=== PATIENT | female | born 1990 | race African-American/Black ===

== ENCOUNTER 2017-12-07 14:22 | Emergency (ER) | payer MEDICAID ==
[~2017-12-07] VITALS: Ht 167.6 cm; Wt 108.9 kg
[~2017-12-07 14:22] MED LIST: AUGMENTIN 875-1 EAC1 ORAL; HYDROCODON-ACE1 EA15 ORAL
[2017-12-07 15:34] LABS: APPEARANCE,URINE CLEAR; BILIRUBIN, URINE NEGATIVE (NEGATIVE); COLOR,URINE PALE YELLOW; GLUCOSE, URINE (UA) NEGATIVE (NEGATIVE); KETONES,URINE NEGATIVE (NEGATIVE); LEUKOCYTE ESTERASE ,URINE 2+ (NEGATIVE); NITRITE,URINE NEGATIVE (NEGATIVE); PH,URINE 6 (4.5-8.0); PROTEIN,URINE NEGATIVE (NEGATIVE); UROBILINOGEN,URINE NORMAL MG/DL (0.0-1.0)
[2017-12-07 15:37] LABS: INR 0.9 (0.9-1.1)
[2017-12-07 15:43] LABS: BASOPHILS % (AUTO) 0.4 % (0.0-2.0); EOSINOPHILS % (AUTO) 1.1 % (0.0-3.0); HEMATOCRIT 33.8 % (37.0-47.0); HEMOGLOBIN 11.5 G/DL (12.0-16.0); LYMPHOCYTES % (AUTO) 15.4 % (20.0-45.0); MEAN CORPUSCULAR VOLUME 81 FL (80-99); MONOCYTES % (AUTO) 4.6 % (1.0-10.0); NEUTROPHILS % (AUTO) 78.4 % (45.0-75.0); PLATELET COUNT 272 K/UL (150-450); RED BLOOD COUNT 4.17 M/UL (4.20-5.40); RED CELL DISTRIBUTION WIDTH 11.6 % (11.6-14.8); WHITE BLOOD COUNT 14.6 K/UL (4.8-10.8)
[2017-12-07 15:47] LABS: ALANINE AMINOTRANSFERASE 17 U/L (12-78); ALBUMIN 2.7 G/DL (3.4-5.0); ALBUMIN/GLOBULIN RATIO 0.7 (1.0-2.7); ALKALINE PHOSPHATASE 73 U/L (46-116); ANION GAP 8 mmol/L (5-15); ASPARTATE AMINO TRANSFERASE 18 U/L (15-37); BILIRUBIN,TOTAL 0.2 MG/DL (0.2-1.0); BLOOD UREA NITROGEN 4 mg/dL (7-18); CALCIUM 8.4 MG/DL (8.5-10.1); CARBON DIOXIDE 27 MMOL/L (21-32); CHLORIDE 119 MMOL/L (98-107); CREATININE 0.6 MG/DL (0.55-1.30); SODIUM 154 MMOL/L (136-145)
[2017-12-07] MEDS ORDERED: cefTRIAXone 2 GM in NS 110 ML IVPB ONE (16:15)
[2017-12-07] MEDS ORDERED: KEFLEX500 MG ORAL (17:11)
--- NOTE | 2017-12-07 17:23 | Emergency Room Report ---
History of Present Illness General Chief Complaint: Complications Source: Patient Present Illness HPI 27-year-old female presents ED for evaluation. Patient complaining of dysuria with foul-smelling urine for the last 4 days. Pain is burning, 4 out of 10, nonradiating. Patient is 32 weeks . Denies vaginal bleeding or discharge. She does have care. Denies flank pain. Denies nausea or vomiting. Denies chest pain or shortness of breath. No other aggravating or relieving factors. Denies any other associated symptoms Allergies: Coded Allergies: No Known Allergies (Unverified , 06/02/16) Patient History Past Medical History: none Past Surgical History: none Pertinent Family History: none Social History: Denies: smoking, alcohol use, drug use Now: Yes - 32 weeks : 4 Para: 3 Immunizations: UTD Reviewed Nursing Documentation: PMH: Agreed; PSxH: Agreed Nursing Documentation-PMH Past Medical History: No Stated History Review of Systems All Other Systems: negative except mentioned in HPI Physical Exam Vital Signs Date Time Temp Pulse Resp B/P (MAP) Pulse Ox O2 Delivery O2 Flow Rate FiO2 12/07/17 14:27 98.4 101 18 135/78 96 Room Air 98.4 Sp02 EP Interpretation: reviewed, normal General Appearance: no apparent distress, alert, GCS 15, non-toxic Head: normocephalic, atraumatic Eyes: bilateral eye normal inspection, bilateral eye PERRL ENT: hearing grossly normal, normal pharynx, no angioedema, normal voice Neck: full range of motion, supple/symm/no masses Respiratory: chest non-tender, lungs clear, normal breath sounds, speaking full sentences Cardiovascular #1: regular rate, rhythm, no edema Cardiovascular #2: 2+ carotid (R), 2+ carotid (L), 2+ radial (R), 2+ radial (L) , 2+ dorsalis pedis (R), 2+ dorsalis pedis (L) Gastrointestinal: normal bowel sounds, soft, non-distended, no guarding, no rebound, other - gravid uterus Rectal: deferred Genitourinary: normal inspection, no CVA tenderness Musculoskeletal: back normal, gait/station normal, normal range of motion, non- tender Neurologic: alert, oriented x3, responsive, motor strength/tone normal, sensory intact, speech normal Psychiatric: judgement/insight normal, memory normal, mood/affect normal, no suicidal/homicidal ideation Reflexes: 3+ bicep (R), 3+ bicep (L), 3+ tricep (R), 3+ tricep (L), 3+ knee (R) , 3+ knee (L) Skin: normal color, no rash, warm/dry, well hydrated Lymphatic: no adenopathy Medical Decision Making Diagnostic Impression: Primary Impression: and not yet delivered in third trimester Additional Impression: Urinary tract infection Qualified Codes: N39.0 - Urinary tract infection, site not specified ER Course Hospital Course 27-year-old female presents ED with dysuria. 32 weeks Differential diagnoses include: gastrits, gastroenterits, ectopic , ovarian torsion/cyst, UTI Clinical course Patient placed on stretcher in ED. After initial history and physical I ordered labs, IV fluids and OB US Labs-minimal leukocytosis, electrolytes okay, beta hCG elevated, UA some bacteria, few WBCs OB ultrasound-IUP approximately 30 weeks detected with heart rate, good motion Discussed case with [facility]ATOR [employer] Dr Dela Cruz. agrees the patient does not require transfer for higher level of care. Given essentially negative workup recommends IV antibiotics here and discharged with antibiotics. Discussed findings with patient. Agrees to discharge. Given IV Rocephin here Diagnosis - not yet delivered in third trimester, UTI Stable and discharged to home with Rx Keflex. Followup with PMD/REG[facility]ATOR [facility] INSERTER. Return to ED if symptoms recur or worsen Labs Test 12/07/17 14:34 12/07/17 14:50 Urine Color Pale yellow Urine Appearance Clear Urine pH 6 (4.5-8.0) Urine Specific [place] 1.005 (1.005-1.035) Urine Protein Negative (NEGATIVE) Urine Glucose (UA) Negative (NEGATIVE) Urine Ketones Negative (NEGATIVE) Urine Occult Blood Negative (NEGATIVE) Urine Nitrite Negative (NEGATIVE) Urine Bilirubin Negative (NEGATIVE) Urine Urobilinogen Normal MG/DL (0.0-1.0) Urine Leukocyte Esterase 2+ (NEGATIVE) Urine RBC 0-2 /HPF (0 - 2) Urine WBC 2-4 /HPF (0 - 2) Urine Squamous Epithelial Cells Few /LPF (NONE/OCC) Urine Bacteria Few /HPF (NONE) White Blood Count 14.6 K/UL (4.8-10.8) Red Blood Count 4.17 M/UL (4.20-5.40) Hemoglobin 11.5 G/DL (12.0-16.0) Hematocrit 33.8 % (37.0-47.0) Mean Corpuscular Volume 81 FL (80-99) Mean Corpuscular Hemoglobin 27.7 PG (27.0-31.0) Mean Corpuscular Hemoglobin Concent 34.1 G/DL (32.0-36.0) Red Cell Distribution Width 11.6 % (11.6-14.8) Platelet Count 272 K/UL (150-450) Mean Platelet Volume 5.8 FL (6.5-10.1) Neutrophils (%) (Auto) 78.4 % (45.0-75.0) Lymphocytes (%) (Auto) 15.4 % (20.0-45.0) Monocytes (%) (Auto) 4.6 % (1.0-10.0) Eosinophils (%) (Auto) 1.1 % (0.0-3.0) Basophils (%) (Auto) 0.4 % (0.0-2.0) Prothrombin Time 9.5 SEC (9.30-11.50) Prothromb Time International Ratio 0.9 (0.9-1.1) Activated Partial Thromboplast Time 30 SEC (23-33) Sodium Level 154 MMOL/L (136-145) Potassium Level 4.0 MMOL/L (3.5-5.1) Chloride Level 119 MMOL/L (98-107) Carbon Dioxide Level 27 MMOL/L (21-32) Anion Gap 8 mmol/L (5-15) Blood Urea Nitrogen 4 mg/dL (7-18) Creatinine 0.6 MG/DL (0.55-1.30) Estimat Glomerular Filtration Rate > 60 mL/min (>60) Glucose Level 75 MG/DL (74-106) Calcium Level 8.4 MG/DL (8.5-10.1) Total Bilirubin 0.2 MG/DL (0.2-1.0) Aspartate Amino Transf (AST/SGOT) 18 U/L (15-37) Alanine Aminotransferase (ALT/SGPT) 17 U/L (12-78) Alkaline Phosphatase 73 U/L (46-116) Total Protein 6.7 G/DL (6.4-8.2) Albumin 2.7 G/DL (3.4-5.0) Globulin 4.0 g/dL Albumin/Globulin Ratio 0.7 (1.0-2.7) Lipase 73 U/L (73-393) Human Chorionic Gonadotropin, Quant 39795 mIU/mL (1-6) CT/MRI/US Diagnostic Results CT/MRI/US Diagnostic Results : Imaging Test Ordered: OB US Impression IUP 30 weeks. +FHR. movement seen. no previa. cervix normal Last Vital Signs Date Time Temp Pulse Resp B/P (MAP) Pulse Ox O2 Delivery O2 Flow Rate FiO2 12/07/17 14:27 98.4 101 18 135/78 96 Room Air 98.4 Status: improved Disposition: HOME, SELF-CARE Condition: Stable Scripts Cephalexin* (KEFLEX*) 500 Mg Capsule 500 MG ORAL Q6H, #28 CAP 0 Refills Prov: MARI CRAWLEY M.D. 12/07/17 Patient Instructions: Dysuria MARI CRAWLEY M.D. Dec 07, 2017 17:23
[2017-12-07 17:45] VITALS: BP 129/82
--- NOTE | 2017-12-07 18:14 | Diagnostic Imaging Report ---
Indication: Abdominal pain Technique: Transabdominal images of the gravid uterus Comparison: none Findings: This single live intrauterine . This demonstrates motion and heart activity, heart rate one 140. Normal amniotic fluid volume, amniotic fluid index 23. Lesion. Anterior fundal placenta clears internal cervical os. The cervix is closed, endocervical canal measuring 3.4 cm Average of sonographic measurements yields estimated gestational age of 30 weeks 4 days. Estimated gestational age by dates is 32 weeks 3 days. Only limited assessment of anatomy due to the emergent nature of the exam. No gross anomalies. Normal four-chamber heart, cord insertion, three-vessel cord, stomach, spine. Urinary bladder and kidneys not imaged Impression: 30 week 4 day estimated gestational age, by average ultrasound measurements, single live intrauterine . No unusual features
== END 2017-12-07 17:45 | disposition home or self-care (01) ==
LOC: EMR 15:50
DX: O23.43 Unspecified infection of urinary tract in pregnancy, third trimester (principal); Z3A.32 32 weeks gestation of pregnancy
CPT/HCPCS: 36415; 76805; 80053; 81003; 83690; 84702; 85025; 85610; 85730; 86850; 86870; 86900; 86901; 87086; 96374; 99284; J0696

== ENCOUNTER 2019-02-06 13:52 | Emergency (ER) | payer SELFPAY ==
[~2019-02-06] VITALS: Ht 167.6 cm; Wt 96.2 kg
[~2019-02-06 13:52] MED LIST changes: +KEFLEX500 MG ORAL
[2019-02-06 14:05] VITALS: BP 134/96
[2019-02-06] MEDS ORDERED: Lidocaine 1% Plain 30 ml INJ ONE (14:30)
--- NOTE | 2019-02-06 15:29 | Emergency Room Report ---
History of Present Illness General Chief Complaint: Upper Respiratory Illness Source: Patient Present Illness HPI 28-year-old female with no past medical history other than daily tobacco smoke here complaining of 3 days of cough with yellow sputum, rhinorrhea, sore throat and chills. Patient has been taking [id number]-rbqaxfv cough medications with minimal relief. Denies chest pain, shortness of breath, palpitation, abdominal pain, nausea vomiting. Patient also complains of a painful mass in the inguinal area x1 day she reports that she shaves the area often denies any pus drainage. She is rating the pain in the inguinal area 7 out of 10 upon palpation of the mass without radiation, tingling and numbness. Denies dysuria , urinary frequency, vaginal discharge Allergies: Coded Allergies: No Known Allergies (Unverified , 06/02/16) Patient History Past Medical History: see triage record Past Surgical History: unable to obtain Pertinent Family History: none Last Menstrual Period: 01/31/17 Now: No Immunizations: UTD - Tdap UTD Reviewed Nursing Documentation: PMH: Agreed; PSxH: Agreed Nursing Documentation-PMH Past Medical History: No History, Except For Hx Hypertension: Yes Review of Systems All Other Systems: negative except mentioned in HPI Physical Exam Vital Signs Date Time Temp Pulse Resp B/P (MAP) Pulse Ox O2 Delivery O2 Flow Rate FiO2 02/06/19 14:05 98.4 91 18 134/96 (109) 100 Room Air Sp02 EP Interpretation: reviewed, normal General Appearance: normal inspection, well appearing, no apparent distress Head: normocephalic, atraumatic Eyes: bilateral eye normal inspection, bilateral eye PERRL ENT: hearing grossly normal, TMs + canals normal, uvula midline, nasal congestion, pharyngeal erythema Neck: normal inspection, full range of motion, supple Respiratory: normal inspection, chest non-tender, lungs clear, normal breath sounds, no rhonchi, no respiratory distress, no wheezing Cardiovascular #1: normal inspection, normal peripheral pulses, regular rate, rhythm, no murmur Gastrointestinal: normal inspection, non tender, soft Genitourinary: no CVA tenderness, other - Abscess noted in the right vulva Musculoskeletal: normal inspection, back normal Neurologic: normal inspection, alert Psychiatric: normal inspection, judgement/insight normal Skin: other - Closed abscess right vulva Lymphatic: normal inspection, no adenopathy Procedures Incision and Drainage Incision and Drainage : Consent: Verbal Site: Vulva Blade Size: 11 I & D Procedure: betadine prep Wound Location: pelvis Wound's Depth, Shape: superficial Wound Length (cm): 1 Wound Explored: clean Anesthesia: 1% Lidocaine Volume Anesthetic (ccs): 5 Splint Applied?: No Patient Tolerated: Well Complications: None Medical Decision Making PA Attestation All my diagnosis and treatment plans were reviewed ad discussed with my supervising physician Dr. Riley Diagnostic Impression: Primary Impression: Inguinal abscess Additional Impression: Pharyngitis ER Course 28-year-old female with no past medical history other than daily tobacco smoke here complaining of 3 days of cough with yellow sputum, rhinorrhea, sore throat and chills. Patient has been taking bokr-wqd-rhlcgmj cough medications with minimal relief. Denies chest pain, shortness of breath, palpitation, abdominal pain, nausea vomiting. Patient also complains of a painful mass in the inguinal area x1 day she reports that she shaves the area often denies any pus drainage. She is rating the pain in the inguinal area 7 out of 10 upon palpation of the mass without radiation, tingling and numbness. Denies dysuria , urinary frequency, vaginal discharge Incision and drainage of abscess was done without complications, lidocaine was applied for numbing, patient was put on antibiotics upon discharge and nonadhesive dressing was applied, pt advised to follow up with pcp or go to urgent care for wound check in 2-4days. if fever, chills, severe pain at site of I and D, return to the ER Ddx considered but are not limited to: strep pharyngitis, URI, tonsilitis, peritonsillar absacess, influneza, abscess right vulva, folliculitis Vital signs: are WNL, pt. is afebrile H&PE are most consistent with: pharyngitis(bacterial due to smoking status), abscess vulva ORDERS: naproxen, Tessalon Perles, Keflex, Flonase ED INTERVENTIONS: I&D DISCHARGE: At this time pt. is stable for d/c to home. Will provide printed patient care instructions, and any necessary prescriptions. Care plan and follow up instructions have been discussed with the patient prior to discharge. Follow with her primary care provider or go to an urgent care for wound check in 2 days if fever and chills return to the emergency room Last Vital Signs Date Time Temp Pulse Resp B/P (MAP) Pulse Ox O2 Delivery O2 Flow Rate FiO2 02/06/19 14:15 91 18 Room Air 02/06/19 14:05 98.4 134/96 100 Disposition: HOME, SELF-CARE Condition: Stable Scripts Benzonatate* (TESSALON PERLE*) 100 Mg Capsule 100 MG ORAL THREE TIMES A DAY, #20 PERLE Prov: Yudi Frias 02/06/19 Ondansetron (Zofran) 4 Mg Tablet 4 MG ORAL Q6H PRN for Nausea & Vomiting, #10 TAB Prov: Yudi Frias 02/06/19 Naproxen* (NAPROXEN*) 500 Mg Tablet 500 MG ORAL TWICE A DAY, #30 TAB Prov: Yudi Frias 02/06/19 Cephalexin* (KEFLEX*) 500 Mg Capsule 500 MG ORAL EVERY 6 HOURS for 7 Days, #28 CAP Prov: Yudi Frias 02/06/19 Patient Instructions: Abscess, Aneh-ft-Oqrb, Pharyngitis, Svba-wc-[id number] Additional Instructions: Follow-up with your primary care provider or urgent care in 3 to 4 days for wound care if fever chills return to the emergency room Yudi Frias February 06, 2019 15:29
[2019-02-06] MEDS ORDERED: NAPROXEN500 M2 ORAL (15:30)
[2019-02-06] MEDS ORDERED: CEPHALEXIN500 MG ORAL (15:30)
[2019-02-06] MEDS ORDERED: TESSALON PERLE100 MG ORAL (15:30)
[2019-02-06] MEDS ORDERED: ZOFRAN4 M1 ORAL (15:30)
[2019-02-06 15:38] VITALS: BP 128/90
== END 2019-02-06 15:38 | disposition home or self-care (01) ==
LOC: EMR 14:32
DX: L02.214 Cutaneous abscess of groin (principal); J02.9 Acute pharyngitis, unspecified; I10 Essential (primary) hypertension
CPT/HCPCS: 10060; 99283; J2001

== ENCOUNTER 2019-09-01 13:07 | Emergency (ER) | payer MEDICAID ==
[~2019-09-01] VITALS: Ht 167.6 cm; Wt 106.1 kg
[~2019-09-01 13:07] MED LIST changes: +CEPHALEXIN500 MG ORAL; +NAPROXEN500 M2 ORAL; +TESSALON PERLE100 MG ORAL; +ZOFRAN4 M1 ORAL
[2019-09-01] MEDS ORDERED: HYDROCHLOROTHIA25 MG ORAL (13:23)
[2019-09-01] MEDS ORDERED: Ketorolac 30mg Inj IM ONE (13:45)
--- NOTE | 2019-09-01 14:53 | Emergency Room Report ---
History of Present Illness General Chief Complaint: Lower Extremity Injury Source: Patient Present Illness HPI 28-year-old female with no segment past medical history here complaining of left knee pain x2 weeks. Patient reports that she twisted her 2 weeks ago, but an knee brace and applied it however the pain has been increasing. Reports that her primary care physician gave her ibuprofen 800 and is not working. Rating pain 10 out of 10 at this time, denies any calf tenderness, tingling or numbness. Denies pain radiation patient is also obese. Denies any recent fall or injury since 2 weeks ago. Has not been seen by physical therapy or marketing project specialist at this time. No other associated symptoms. Allergies: Coded Allergies: No Known Allergies (Unverified , 06/02/16) Patient History Past Medical History: see triage record Past Surgical History: unable to obtain Pertinent Family History: none Last Menstrual Period: nov Now: No Immunizations: UTD Reviewed Nursing Documentation: PMH: Agreed; PSxH: Agreed Nursing Documentation-PMH Past Medical History: No History, Except For Hx Hypertension: Yes Review of Systems All Other Systems: negative except mentioned in HPI Physical Exam Vital Signs Date Time Temp Pulse Resp B/P (MAP) Pulse Ox O2 Delivery O2 Flow Rate FiO2 09/01/19 13:18 97.9 104 20 164/121 (135) 100 Room Air Sp02 EP Interpretation: reviewed, normal General Appearance: no apparent distress, alert, GCS 15, non-toxic Head: normocephalic, atraumatic Eyes: bilateral eye normal inspection, bilateral eye PERRL ENT: hearing grossly normal, normal pharynx, no angioedema, normal voice Neck: full range of motion, supple/symm/no masses Respiratory: chest non-tender, lungs clear, normal breath sounds, no rhonchi, no retraction, no wheezing, speaking full sentences Cardiovascular #1: regular rate, rhythm, no edema, no murmur Cardiovascular #2: 2+ dorsalis pedis (R), 2+ dorsalis pedis (L) Gastrointestinal: normal bowel sounds, non tender, soft, non-distended, no guarding, no rebound Rectal: deferred Genitourinary: no CVA tenderness Musculoskeletal: back normal, no calf tenderness, non-tender, swelling - left knee Neurologic: alert, motor strength/tone normal, oriented x3, sensory intact, responsive, speech normal Psychiatric: judgement/insight normal, memory normal, mood/affect normal, no suicidal/homicidal ideation Skin: no rash Lymphatic: no adenopathy Medical Decision Making PA Attestation All my diagnosis and treatment plans were reviewed ad discussed with my supervising physician Dr. Sim Diagnostic Impression: Primary Impression: Knee sprain ER Course 28-year-old female with no segment past medical history here complaining of left knee pain x2 weeks. Patient reports that she twisted her 2 weeks ago, but an knee brace and applied it however the pain has been increasing. Reports that her primary care physician gave her ibuprofen 800 and is not working. Rating pain 10 out of 10 at this time, denies any calf tenderness, tingling or numbness. Denies pain radiation patient is also obese. Denies any recent fall or injury since 2 weeks ago. Has not been seen by physical therapy or marketing project specialist at this time. No other associated symptoms. Ddx considered but are not limited to: Knee sprain, strain, fracture, contusion , meniscus tear injury Vital signs: are WNL, pt. is afebrile H&PE are most consistent with: Ddx considered but are not limited to: Knee sprain, strain, fracture, contusion, meniscus tear injury Vital signs: are WNL, pt. is afebrile H&PE are most consistent with: knee sprain ORDERS: Knee x-ray, ibuprofen 800, Robaxin, Voltaren gel ER intervention: Toradol DISCHARGE: At this time pt. is stable for d/c to home. Will provide printed patient care instructions, and any necessary prescriptions. Care plan and follow up instructions have been discussed with the patient prior to discharge. Continue current daily knee brace, also follow-up with primary care provider, this time no fracture noted, physical therapy may be beneficial, weight loss also advised. If worsening symptoms return to emergency room. Also MRI of the knee may be needed to be requested by primary care physician Other X-Ray Diagnostic Results Other X-Ray Diagnostic Results : X-Ray ordered: left knee # of Views/Limited Vs Complete: 3 View Indication: Pain EP Interpretation: Yes PA Xray: Interpretation reviewed, and agrees with findings. Interpretation: no dislocation, no soft tissue swelling, no fractures Impression: No acute disease Electronically Signed by: Yudi Starr PA-C Last Vital Signs Date Time Temp Pulse Resp B/P (MAP) Pulse Ox O2 Delivery O2 Flow Rate FiO2 09/01/19 13:18 97.9 104 20 164/121 (135) 100 Room Air Disposition: HOME, SELF-CARE Condition: Stable Scripts Diclofenac Sodium (VOLTAREN) 100 Gm Gel..gram. 2 GM TP BID, #100 GM Prov: Yudi Frias 09/01/19 Methocarbamol* (ROBAXIN-500*) 500 Mg Tablet 500 MG ORAL TID PRN for For Pain, #15 TAB 0 Refills Prov: Yudi Frias 09/01/19 Ibuprofen (Ibu) 800 Mg Tablet 800 MG PO BID, #20 TAB Prov: Yudi Frias 09/01/19 Referrals: NOT CHOSEN IPA/,REFERRING (PCP) Patient Instructions: Knee Sprain Additional Instructions: Keep wearing your knee immobilizer, follow-up with marketing project specialist, possible MRI may be needed, no obvious bone deformity or injury noted. Avoid strenuous physical activity. If worsening symptoms return to the emergency room Yudi Frias Sep 01, 2019 14:53
[2019-09-01] MEDS ORDERED: VOLTAREN100 G1 TP (14:54)
[2019-09-01] MEDS ORDERED: IBU800 MG PO (14:54)
[2019-09-01] MEDS ORDERED: ROBAXIN-500MG ORAL (14:54)
[2019-09-01 15:20] VITALS: BP 156/75
--- NOTE | 2019-09-01 16:48 | Diagnostic Imaging Report ---
Indications: Trauma, pain, status post fall one month ago Technique: Three views of the left knee Comparison: None Findings: No acute fractures. No dislocations. Joint spaces are preserved. No radiopaque foreign body. Normal mineralization. Impression: No acute process
== END 2019-09-01 15:20 | disposition home or self-care (01) ==
LOC: EMR 14:12
DX: S83.92XA Sprain of unspecified site of left knee, initial encounter (principal); X58.XXXA Exposure to other specified factors, initial encounter; Y92.9 Unspecified place or not applicable; I10 Essential (primary) hypertension
CPT/HCPCS: 73562; 96372; J1885; Z7502; 99283